=== PATIENT | male | born 1960 | race Two or more races ===

== ENCOUNTER 2018-05-16 06:15 | Emergency (ER) | payer OTHER ==
[~2018-05-16] VITALS: Ht 175.3 cm; Wt 93.0 kg
[~2018-05-16 06:15] MED LIST: CEFDINIR300 MG PO; FLONASE ALLERG9.9 ML NASAL; FOXAMAX PO; MUCINEX DM ER1 EAC1 PO; NABUMETONE500 MG PO; PERCOCET 5/3251 TAB PO; SYMBICORT 16010.2 GM IH; TAMS0.4C PO; TESSALON PERLE100 M1 PO
== END 2018-05-16 11:51 | disposition home or self-care (01) ==
LOC: ER 06:15
DX: R42 Dizziness and giddiness (principal)

== ENCOUNTER 2019-07-22 10:51 | Emergency (ER) | payer OTHER ==
[~2019-07-22] VITALS: Ht 180.3 cm; Wt 97.5 kg
== END 2019-07-22 14:56 | disposition home or self-care (01) ==
LOC: ER 10:51
DX: R42 Dizziness and giddiness (principal)

== ENCOUNTER 2021-04-27 11:06 | Outpatient (CLI) | payer OTHER | END 2021-05-02 15:54 | disposition home or self-care (01) | LOC: MRI 11:06 | PROVIDERS: ATTEND Orthopaedic Surgery | DX: M17.11 Unilateral primary osteoarthritis, right knee (principal); M25.561 Pain in right knee | CPT/HCPCS: 73721 ==

== ENCOUNTER 2022-09-06 07:07 | Outpatient (CLI) | payer OTHER | END 2022-09-06 07:15 | disposition home or self-care (01) | LOC: RAD 07:07 | PROVIDERS: ATTEND Orthopaedic Surgery | DX: R07.9 Chest pain, unspecified (principal) ==

== ENCOUNTER 2022-09-06 08:43 | Inpatient (IN) | payer OTHER ==
[~2022-09-06] VITALS: Ht 175.3 cm; Wt 99.3 kg
[2022-09-13] MEDS ORDERED: ATORVASTATIN CA20 MG (08:39)
[2022-09-13] MEDS ORDERED: LORATADINE10 MG (08:39)
[2022-09-13] MEDS ORDERED: FLONASE16 GM (08:39)
[2022-09-13] MEDS ORDERED: PROVENTIL HFA6.7 GM (08:39)
[2022-09-13] MEDS ORDERED: IBANDRONATE SO150 MG (08:39)
[2022-09-14] MEDS ORDERED: GABAPENTIN100 MG PO (12:14)
[2022-09-14] MEDS ORDERED: NORFLEX100MG PO (12:14)
[2022-09-14] MEDS ORDERED: XARELTO10 MG PO (12:15)
[2022-09-14] MEDS ORDERED: OXYC1TAB9 PO (12:16)
== END 2022-09-14 18:43 | DRG 470 ==
LOC: O/R 09-12 05:40 → SURG 09-12 11:00
PROVIDERS: ADMIT Orthopaedic Surgery; ATTEND Orthopaedic Surgery
PROC: 0SRC0JZ Replacement of Right Knee Joint with Synthetic Substitute, Open Approach (ICD-10-PCS; principal; 2022-09-12 11:00)
DX: M17.11 Unilateral primary osteoarthritis, right knee (principal); D62 Acute posthemorrhagic anemia; M85.661 Other cyst of bone, right lower leg; Z96.651 Presence of right artificial knee joint; E78.5 Hyperlipidemia, unspecified